=== PATIENT | male | born 1985 | race Caucasian/White ===

== ENCOUNTER 2023-02-20 23:00 | Emergency (ER) | payer MEDICAID ==
[~2023-02-20] VITALS: Ht 167.6 cm; Wt 71.7 kg
[2023-02-20 23:30] VITALS: BP_SYST 130; PULSE 80; RESP 19; TEMP 98.3; O2SAT 97
[2023-02-21] MEDS ORDERED: AUG875 PO
== END 2023-02-21 00:02 | disposition home or self-care (01) ==
LOC: SED 23:00
DX: J02.9 Acute pharyngitis, unspecified (principal); Z79.899 Other long term (current) drug therapy
CPT/HCPCS: 99283

== ENCOUNTER → 2023-03-02 | Emergency (ER) | payer MEDICAID ==
[~2023-03-02] VITALS: Ht 172.7 cm; Wt 71.7 kg
[~2023-03-02] MED LIST: AUG875 PO; BENZ100C92 PO; MED4 PO
[2023-03-02 19:54] VITALS: BP_SYST 119; PULSE 114; RESP 20; TEMP 98.4; O2SAT 96
[2023-03-02 20:06] VITALS: BP_SYST 120; PULSE 101; RESP 20; TEMP 98.4; O2SAT 96
== END | disposition home or self-care (01) ==
LOC: SED 19:36
DX: J45.909 Unspecified asthma, uncomplicated (principal); Z79.899 Other long term (current) drug therapy
CPT/HCPCS: 71045; 99283

== ENCOUNTER 2023-10-31 21:39 | Emergency (ER) | payer MEDICAID ==
[~2023-10-31] VITALS: Ht 175.3 cm; Wt 74.8 kg
[2023-10-31 21:40] VITALS: BP_SYST 129; PULSE 98; RESP 20; TEMP 97.4; O2SAT 96
[2023-10-31] MEDS ORDERED: TETRACAINE HCL/PF 0.5% OPHTHALMIC DROPS 4 ML OP ONE (21:48)
[2023-10-31] MEDS ORDERED: FLOEARD RIGHT EYE (21:52)
[2023-10-31 21:53] VITALS: BP_SYST 129; PULSE 98; RESP 20; TEMP 97.4; O2SAT 96
== END 2023-10-31 21:53 | disposition home or self-care (01) ==
LOC: SED 21:39
DX: S05.01XA Injury of conjunctiva and corneal abrasion without foreign body, right eye, initial encounter (principal); Z79.899 Other long term (current) drug therapy; Z79.2 Long term (current) use of antibiotics; X58.XXXA Exposure to other specified factors, initial encounter; Y93.89 Activity, other specified; Y92.89 Other specified places as the place of occurrence of the external cause; Y99.8 Other external cause status
CPT/HCPCS: 99283